=== PATIENT | male | born 1945 | race Caucasian/White ===

== ENCOUNTER → 2016-10-07 | Outpatient (CLI) | payer MEDICARE ==
[~2016-10-07] MED LIST: DOXA4TAB3 PO; LEVO50TA5
== END | disposition home or self-care (01) ==
LOC: CFH 11:04
PROVIDERS: ATTEND Internal Medicine Gastroenterology
DX: K76.0 Fatty (change of) liver, not elsewhere classified (principal)
CPT/HCPCS: 76700

== ENCOUNTER → 2017-02-13 | Outpatient (CLI) | payer MEDICARE ==
[~2017-02-13] MED LIST changes: +OMNIPAQUE 350 MG/ML, 100ML BOTTLE ONE
== END ==
LOC: CFH 11:08
PROVIDERS: ATTEND Family Medicine
DX: C7A.012 Malignant carcinoid tumor of the ileum (principal)
CPT/HCPCS: 71260; 74177; Q9967

== ENCOUNTER → 2017-08-29 | Outpatient (CLI) | payer MEDICARE ==
[~2017-08-29] MED LIST changes: +LEVO125T5 PO; -OMNIPAQUE 350 MG/ML, 100ML BOTTLE ONE
== END | disposition home or self-care (01) ==
LOC: STAR 14:12
PROVIDERS: ATTEND Internal Medicine Gastroenterology
DX: Z01.818 Encounter for other preprocedural examination (principal); I45.10 Unspecified right bundle-branch block
CPT/HCPCS: 93005

== ENCOUNTER 2017-09-04 07:18 | Day surgery (SDC) | payer MEDICARE ==
[~2017-09-04] VITALS: Ht 176.5 cm; Wt 74.0 kg
[2017-09-04] MEDS ORDERED: LACTATED RINGERS 1,000 ML IV SCH (07:59)
[2017-09-04 08:01] VITALS: BP 110/73
[2017-09-04] MEDS ORDERED: FENTANYL PF 100 MCG/2ML ONE (08:55)
[2017-09-04] MEDS ORDERED: ROCURONIUM 10 MG/ML,10ML ONE (09:21)
[2017-09-04] MEDS ORDERED: ONDANSETRON 2MG/ML, 2ML ONE (09:21)
[2017-09-04] MEDS ORDERED: LIDOCAINE PF 2%, 5ML ONE (09:21)
[2017-09-04] MEDS ORDERED: SUCCINYLCHOLINE 20 MG/ML, 10ML ONE (09:21)
[2017-09-04] MEDS ORDERED: EPHEDRINE 50 MG/ML, 1ML ONE (09:21)
[2017-09-04] MEDS ORDERED: DEXAMETHASONE 4 MG/ML, 1ML ONE (09:21)
[2017-09-04] MEDS ORDERED: PROPOFOL 10 MG/ML, 20ML ONE (09:21)
[2017-09-04] MEDS ORDERED: ACETAMINOPHEN 325 MG TABLET PO PRN (10:00)
[2017-09-04] MEDS ORDERED: PROMETHAZINE 25 MG/ML, 1ML IV PRN (10:00)
[2017-09-04] MEDS ORDERED: OXYcodone 5 MG/5 ML ORAL.SOL UDC PO PRN (10:00)
[2017-09-04] MEDS ORDERED: FENTANYL PF 100 MCG/2ML IV PRN (10:00)
[2017-09-04] MEDS ORDERED: HYDROcodone/APAP 7.5-325MG/15ML UDC PO PRN (10:00)
[2017-09-04] MEDS ORDERED: ONDANSETRON ODT 8 MG PO PRN (10:00)
== END 2017-09-04 11:30 ==
LOC: OUT 07:18
PROVIDERS: ATTEND Internal Medicine Gastroenterology
DX: K29.60 Other gastritis without bleeding (principal); K82.8 Other specified diseases of gallbladder; K31.89 Other diseases of stomach and duodenum; Z88.0 Allergy status to penicillin; E03.9 Hypothyroidism, unspecified
CPT/HCPCS: 43239; 43242; 88172; 88173; 88177; 88305; J0330; J1100; J2405; J2704; J3010; J7120

== ENCOUNTER → 2017-11-27 | Outpatient (CLI) | payer MEDICARE | END | disposition home or self-care (01) | LOC: CFH 09:46 | PROVIDERS: ATTEND Internal Medicine Gastroenterology | DX: C7B.01 Secondary carcinoid tumors of distant lymph nodes (principal); R63.4 Abnormal weight loss; R10.11 Right upper quadrant pain; K57.30 Diverticulosis of large intestine without perforation or abscess without bleeding; Z87.891 Personal history of nicotine dependence | CPT/HCPCS: 74250 ==

== ENCOUNTER → 2018-02-20 | Outpatient (CLI) | payer MEDICARE ==
[~2018-02-20] MED LIST changes: +GADOBUTROL 7.5 MMOL/7.5 ML VIAL ONE
== END | disposition home or self-care (01) ==
LOC: CFH 14:24
PROVIDERS: ATTEND Internal Medicine Hematology & Oncology
DX: C7A.012 Malignant carcinoid tumor of the ileum (principal); N13.30 Unspecified hydronephrosis
CPT/HCPCS: 74183; A9585

== ENCOUNTER → 2018-04-06 | Outpatient (CLI) | payer MEDICARE ==
[~2018-04-06] MED LIST changes: -GADOBUTROL 7.5 MMOL/7.5 ML VIAL ONE
== END | disposition home or self-care (01) ==
LOC: EDSTATUS 09:00 → RAD 09:37
PROVIDERS: ATTEND Internal Medicine Hematology & Oncology
DX: N13.39 Other hydronephrosis (principal); C7A.012 Malignant carcinoid tumor of the ileum; K76.89 Other specified diseases of liver; I81 Portal vein thrombosis
CPT/HCPCS: 76700

== ENCOUNTER 2018-05-04 07:20 | Day surgery (SDC) | payer MEDICARE ==
[2018-05-04] MEDS ORDERED: SODIUM CHLORIDE 0.9% 1,000 ML IV SCH (07:42)
[2018-05-04 07:58] VITALS: BP 106/65
[2018-05-04 08:28] LABS: INTERNATIONAL NORMALIZED RATIO 1.19 (0.93-1.1); PROTHROMBIN TIME 12.4 Seconds (9.6-11.5)
[2018-05-04] MEDS ORDERED: FLUMAZENIL 0.1 MG/1 ML, 5ML ONE (08:51)
[2018-05-04] MEDS ORDERED: MIDAZOLAM 1 MG/ML, 5ML ONE ×2 (08:51)
[2018-05-04] MEDS ORDERED: FENTANYL PF 100 MCG/2ML ONE (08:51)
[2018-05-04] MEDS ORDERED: NALOXONE 1 MG/ML, 2ML ONE (08:52)
[2018-05-04] MEDS ORDERED: LIDOCAINE-MPF 1%, 5ML ONE (09:03)
== END 2018-05-04 10:45 | disposition home or self-care (01) ==
LOC: OUT 07:20
PROVIDERS: ATTEND Internal Medicine Hematology & Oncology
DX: C7A.012 Malignant carcinoid tumor of the ileum (principal); Z88.0 Allergy status to penicillin; Z88.8 Allergy status to other drugs, medicaments and biological substances; Z98.890 Other specified postprocedural states; Z87.891 Personal history of nicotine dependence
CPT/HCPCS: 36415; 47000; 77012; 85610; 88307; 88313; 88341; 88342; 88360; 99156; 99157; J2250; J3010; J2310

== ENCOUNTER 2018-05-20 13:09 | Inpatient (IN) | payer MEDICARE ==
[~2018-05-20] VITALS: Ht 175.3 cm; Wt 76.4 kg
--- NOTE | 2018-05-20 13:41 | NUR ---
PT SENT FROM PCP- DR PFEIFFER - FOR "LIVER FAILURE AND LIVER STENT PLACEMENT", +JAUNDICE, HX NEUROENDOCRINE CA- DR ZULUAGA, DENIES PAIN OR CHEMO. PT PLACED ON MONITOR, VSS ON RA. AT BEDSIDE. IV PLACED FOR CT
[2018-05-20 13:49] LABS: INTERNATIONAL NORMALIZED RATIO 1.25 (0.93-1.1)
[2018-05-20 13:52] LABS: ALBUMIN 2.8 g/dL (3.4-5.0); ANION GAP 7 mmol/L (5-15); CALCIUM 9.1 mg/dL (8.5-10.1); CHLORIDE 106 mmol/L (98-107)
[2018-05-20 13:55] LABS: ALANINE AMINOTRANSFERASE 90 U/L (12-78); ALKALINE PHOSPHATASE 653 U/L (45-117)
[2018-05-20 14:00] LABS: CREATININE 1.93 mg/dL (0.7-1.3); TOTAL PROTEIN 6.3 g/dL (6.4-8.2)
[2018-05-20] MEDS ORDERED: SODIUM CHLORIDE FLUSH 10ML SYR IVF ONE (14:00)
[2018-05-20 14:01] LABS: BILIRUBIN,TOTAL 20.4 mg/dL (0.2-1.0)
[2018-05-20 14:11] LABS: MEAN CORPUSCULAR HEMOGLOBIN 33.5 pg (27.5-34.5); MEAN CORPUSCULAR HGB CONC 34.4 g/dL (33.2-36.2); MEAN CORPUSCULAR VOLUME 97.5 fL (81-97); MEAN PLATELET VOLUME 10.2 fL (7.4-10.4); PLATELET COUNT 240 x10^3/uL (130-400); RED BLOOD COUNT 3.66 x10^6/uL (4.38-5.82)
--- NOTE | 2018-05-20 14:42 | NUR ---
PT IN BED, NAD, NO NEEDS AT THIS TIME, AWAITING CT SCAN
[2018-05-20 15:06] LABS: MD YES
[2018-05-20 15:08] LABS: <RBC MORPHOLOGY> NORMAL; BAND#(MANUAL) 0.14 x10^3/uL; BANDS%(MANUAL) 2 % (0-7); LYMPH#(MANUAL) 1.02 x10^3/uL (1-3.4); LYMPHS% (MANUAL) 15 % (22-44); MONOS#(MANUAL) 0.27 x10^3/uL (0.3-2.7); MONOS% (MANUAL) 4 % (2-9); SEG#(MANUAL) 5.37 x10^3/uL (1.8-6.8); SEGS% (MANUAL) 79 % (42-75)
[2018-05-20 15:09] LABS: <PLATELET ESTIMATE> ADEQUATE; LARGE PLATELETS 1+
--- NOTE | 2018-05-20 15:35 | NUR ---
AND HOSPITALIST AT BEDSIDE. UA SENT. PT RESTING IN [facility] WITH FRIEND AT BEDSIDE. JORGE, VALERIANO. WCTM
[2018-05-20 15:39] LABS: BILIRUBIN,INDIRECT 3.9 mg/dL (0.0-2.0)
[2018-05-20 15:41] LABS: BILIRUBIN, DIRECT 16.5 mg/dL (0.1-0.2)
[2018-05-20] MEDS ORDERED: hydrALAzine 20 MG/ML, 1ML IVPush PRN (16:00)
[2018-05-20] MEDS ORDERED: ONDANSETRON 2MG/ML, 2ML IVPush PRN (16:00)
[2018-05-20 16:30] LABS: MICROSCOPIC INDICATED
[2018-05-20 16:37] LABS: CULTURE INDICATED? YES
[2018-05-20 17:03] VITALS: BP 113/70
[2018-05-20] MEDS: SODIUM CHLORIDE 0.9% 1,000 ML IV SCH (17:55)
[2018-05-20 19:20] VITALS: BP 156/73
[2018-05-20 19:21] VITALS: BP 143/75
[2018-05-20] MEDS: METRONIDAZOLE PMX 500MG/100ML 100 ML IV SCH (20:11)
[2018-05-20] MEDS: CEFTRIAXONE PMX 2GM/50ML 50 ML IV SCH (21:58)
[2018-05-21 02:40] VITALS: BP 124/69
[2018-05-21] MEDS: METRONIDAZOLE PMX 500MG/100ML 100 ML IV SCH ×3 (05:00→20:18)
[2018-05-21 05:13] LABS: ALANINE AMINOTRANSFERASE 74 U/L (12-78); ALBUMIN 2.1 g/dL (3.4-5.0); ANION GAP 6 mmol/L (5-15); CALCIUM 8.5 mg/dL (8.5-10.1); CHLORIDE 111 mmol/L (98-107); CREATININE 1.53 mg/dL (0.7-1.3)
[2018-05-21 05:15] LABS: ALKALINE PHOSPHATASE 547 U/L (45-117); MEAN CORPUSCULAR HEMOGLOBIN 32.8 pg (27.5-34.5); MEAN CORPUSCULAR HGB CONC 33.9 g/dL (33.2-36.2); MEAN CORPUSCULAR VOLUME 96.9 fL (81-97); MEAN PLATELET VOLUME 9.8 fL (7.4-10.4); PLATELET COUNT 205 x10^3/uL (130-400); RED BLOOD COUNT 3.17 x10^6/uL (4.38-5.82); RED CELL DISTRIBUTION WIDTH 18.8 % (9.4-14.8); TOTAL PROTEIN 5.2 g/dL (6.4-8.2)
[2018-05-21 05:17] LABS: BILIRUBIN,TOTAL 15.6 mg/dL (0.2-1.0)
[2018-05-21 05:46] LABS: MD YES
[2018-05-21 05:48] LABS: <PLATELET ESTIMATE> ADEQUATE; <PLT MORPHOLOGY> NORMAL PLT MORPH; <RBC MORPHOLOGY> NORMAL; BAND#(MANUAL) 0.06 x10^3/uL; BANDS%(MANUAL) 1 % (0-7); EOS#(MANUAL) 0.06 x10^3/uL (0.0-0.4); EOS% (MANUAL) 1 % (1-7); LYMPH#(MANUAL) 1.02 x10^3/uL (1-3.4); LYMPHS% (MANUAL) 17 % (22-44); MONOS#(MANUAL) 0.48 x10^3/uL (0.3-2.7); MONOS% (MANUAL) 8 % (2-9); SEG#(MANUAL) 4.38 x10^3/uL (1.8-6.8); SEGS% (MANUAL) 73 % (42-75)
[2018-05-21 07:30] VITALS: BP 107/65
[2018-05-21] MEDS: PHYTONADIONE 10 MG/ML, 1ML SQ SCH (09:12)
[2018-05-21] MEDS: SODIUM CHLORIDE 0.9% 1,000 ML IV SCH ×2 (09:12→22:55)
[2018-05-21 13:16] VITALS: BP 125/70
[2018-05-21 19:03] VITALS: BP 133/74
[2018-05-21] MEDS: CEFTRIAXONE PMX 2GM/50ML 50 ML IV SCH (22:55)
[2018-05-22 02:20] VITALS: BP 113/70
[2018-05-22] MEDS: SODIUM CHLORIDE 0.9% 1,000 ML IV SCH ×2 (02:20→21:08)
[2018-05-22 04:47] LABS: MEAN CORPUSCULAR HGB CONC 33.9 g/dL (33.2-36.2); MEAN CORPUSCULAR VOLUME 97.4 fL (81-97); MEAN PLATELET VOLUME 9.8 fL (7.4-10.4); PLATELET COUNT 213 x10^3/uL (130-400); RED BLOOD COUNT 3.18 x10^6/uL (4.38-5.82); RED CELL DISTRIBUTION WIDTH 18.6 % (9.4-14.8)
[2018-05-22 05:01] LABS: ALBUMIN 2.1 g/dL (3.4-5.0); ANION GAP 7 mmol/L (5-15); CALCIUM 8.2 mg/dL (8.5-10.1); CHLORIDE 113 mmol/L (98-107)
[2018-05-22 05:04] LABS: ALANINE AMINOTRANSFERASE 69 U/L (12-78); ALKALINE PHOSPHATASE 517 U/L (45-117); BILIRUBIN,TOTAL 14.9 mg/dL (0.2-1.0); CREATININE 1.47 mg/dL (0.7-1.3)
[2018-05-22 05:39] LABS: MD YES
[2018-05-22 05:41] LABS: LYMPH#(MANUAL) 1.16 x10^3/uL (1-3.4); LYMPHS% (MANUAL) 20 % (22-44); MONOS#(MANUAL) 0.29 x10^3/uL (0.3-2.7); MONOS% (MANUAL) 5 % (2-9)
[2018-05-22 05:42] LABS: ANISOCYTOSIS 1+; EOS#(MANUAL) 0.12 x10^3/uL (0.0-0.4); EOS% (MANUAL) 2 % (1-7); SEG#(MANUAL) 4.23 x10^3/uL (1.8-6.8); SEGS% (MANUAL) 73 % (42-75); TARGET CELLS 1+
[2018-05-22 05:43] LABS: <PLATELET ESTIMATE> ADEQUATE; <PLT MORPHOLOGY> NORMAL PLT MORPH
[2018-05-22] MEDS: METRONIDAZOLE PMX 500MG/100ML 100 ML IV SCH ×3 (05:55→21:07)
[2018-05-22 07:43] VITALS: BP 114/70
[2018-05-22] MEDS: PHYTONADIONE 10 MG/ML, 1ML SQ SCH (10:02)
[2018-05-22 12:23] VITALS: BP 112/69
[2018-05-22] MEDS ORDERED: FENTANYL PF 100 MCG/2ML ONE ×4 (13:23→14:47)
[2018-05-22] MEDS ORDERED: ROCURONIUM 10MG/ML,5ML ONE (13:33)
[2018-05-22] MEDS ORDERED: PROPOFOL 10 MG/ML, 20ML ONE (13:33)
[2018-05-22] MEDS ORDERED: SUCCINYLCHOLINE 20 MG/ML, 10ML ONE (13:33)
[2018-05-22] MEDS ORDERED: ONDANSETRON 2MG/ML, 2ML IV PRN (14:00)
[2018-05-22] MEDS ORDERED: ONDANSETRON ODT 8 MG PO PRN (14:00)
[2018-05-22] MEDS ORDERED: HYDROmorphone 2 MG/ML, 1ML IVPush PRN (14:00)
[2018-05-22] MEDS ORDERED: OXYcodone 5 MG/5 ML ORAL.SOL UDC PO PRN (14:00)
[2018-05-22] MEDS ORDERED: FENTANYL PF 100 MCG/2ML IV PRN (14:00)
[2018-05-22] MEDS ORDERED: FENTANYL PF 250 MCG/5ML ONE (14:49)
[2018-05-22 15:22] VITALS: BP 110/69
[2018-05-22 19:42] VITALS: BP 120/69
[2018-05-22] MEDS: CEFTRIAXONE PMX 2GM/50ML 50 ML IV SCH (22:38)
[2018-05-23 01:05] VITALS: BP 116/71
[2018-05-23] MEDS: METRONIDAZOLE PMX 500MG/100ML 100 ML IV SCH ×3 (05:15→21:18)
[2018-05-23 07:35] VITALS: BP 115/63
[2018-05-23 08:28] LABS: MEAN CORPUSCULAR HGB CONC 33.6 g/dL (33.2-36.2); MEAN CORPUSCULAR VOLUME 98.2 fL (81-97); MEAN PLATELET VOLUME 9.6 fL (7.4-10.4); PLATELET COUNT 229 x10^3/uL (130-400); RED BLOOD COUNT 3.45 x10^6/uL (4.38-5.82); RED CELL DISTRIBUTION WIDTH 18.6 % (9.4-14.8)
[2018-05-23 08:35] LABS: ALANINE AMINOTRANSFERASE 70 U/L (12-78); ALBUMIN 2.4 g/dL (3.4-5.0); ANION GAP 9 mmol/L (5-15); CALCIUM 8.9 mg/dL (8.5-10.1); CHLORIDE 112 mmol/L (98-107); CREATININE 1.87 mg/dL (0.7-1.3)
[2018-05-23 08:38] LABS: ALKALINE PHOSPHATASE 541 U/L (45-117); TOTAL PROTEIN 5.6 g/dL (6.4-8.2)
[2018-05-23 08:48] LABS: BILIRUBIN,TOTAL 16.6 mg/dL (0.2-1.0)
[2018-05-23] MEDS: PHYTONADIONE 10 MG/ML, 1ML SQ SCH (08:50)
[2018-05-23 09:35] LABS: MD YES
[2018-05-23 09:40] LABS: BAND#(MANUAL) 0.08 x10^3/uL; BANDS%(MANUAL) 1 % (0-7); EOS#(MANUAL) 0.08 x10^3/uL (0.0-0.4); EOS% (MANUAL) 1 % (1-7); LYMPH#(MANUAL) 1.15 x10^3/uL (1-3.4); LYMPHS% (MANUAL) 14 % (22-44); METAMYELOCYTES# (MANUAL) 0.08 x10^3/uL (0-0); METAMYELOCYTES% (MANUAL) 1 % (0-1); MONOS#(MANUAL) 0.41 x10^3/uL (0.3-2.7); MONOS% (MANUAL) 5 % (2-9); MYELOCYTES# (MANUAL) 0.08 x10^3/uL (0-0); MYELOCYTES% (MANUAL) 1 % (0-0); REACTIVE LYMPHS # (MANUAL) 0.08 x10^3/uL (0-0); REACTIVE LYMPHS % (MANUAL) 1 % (0-0); SEG#(MANUAL) 6.23 x10^3/uL (1.8-6.8); SEGS% (MANUAL) 76 % (42-75)
[2018-05-23 09:45] LABS: ANISOCYTOSIS 1+
[2018-05-23 09:46] LABS: <PLATELET ESTIMATE> ADEQUATE; <PLT MORPHOLOGY> NORMAL PLT MORPH
[2018-05-23] MEDS: SODIUM CHLORIDE 0.9% 1,000 ML IV SCH (12:32)
[2018-05-23 13:35] VITALS: BP 118/70
[2018-05-23 18:49] VITALS: BP 121/70
[2018-05-23] MEDS: CEFTRIAXONE PMX 2GM/50ML 50 ML IV SCH (22:41)
[2018-05-24 00:51] VITALS: BP 117/68
[2018-05-24 07:30] VITALS: BP 125/73
[2018-05-24] MEDS: METRONIDAZOLE PMX 500MG/100ML 100 ML IV SCH ×3 (08:05→23:13)
[2018-05-24] MEDS: SODIUM CHLORIDE 0.9% 1,000 ML IV SCH (08:05)
[2018-05-24 08:42] LABS: ALBUMIN 2.2 g/dL (3.4-5.0); ANION GAP 5 mmol/L (5-15); CALCIUM 8.5 mg/dL (8.5-10.1); CHLORIDE 115 mmol/L (98-107)
[2018-05-24 08:45] LABS: ALANINE AMINOTRANSFERASE 61 U/L (12-78); ALKALINE PHOSPHATASE 513 U/L (45-117); BILIRUBIN,TOTAL 14.8 mg/dL (0.2-1.0); CREATININE 1.55 mg/dL (0.7-1.3); TOTAL PROTEIN 5.2 g/dL (6.4-8.2)
[2018-05-24 14:00] VITALS: BP 120/72
[2018-05-24 20:36] VITALS: BP 127/77
[2018-05-24] MEDS: CEFTRIAXONE PMX 2GM/50ML 50 ML IV SCH (22:17)
[2018-05-25 00:04] VITALS: BP 124/75
[2018-05-25] MEDS: SODIUM CHLORIDE 0.9% 1,000 ML IV SCH ×2 (01:28→12:33)
[2018-05-25 05:01] LABS: CHLORIDE 116 mmol/L (98-107); MEAN CORPUSCULAR HEMOGLOBIN 33.4 pg (27.5-34.5); MEAN CORPUSCULAR HGB CONC 33.9 g/dL (33.2-36.2); MEAN CORPUSCULAR VOLUME 98.5 fL (81-97); PLATELET COUNT 201 x10^3/uL (130-400); RED BLOOD COUNT 3.16 x10^6/uL (4.38-5.82); RED CELL DISTRIBUTION WIDTH 18.8 % (9.4-14.8)
[2018-05-25 05:07] LABS: ALANINE AMINOTRANSFERASE 54 U/L (12-78); ALBUMIN 2.1 g/dL (3.4-5.0); ALKALINE PHOSPHATASE 486 U/L (45-117); ANION GAP 6 mmol/L (5-15); BILIRUBIN,TOTAL 13.9 mg/dL (0.2-1.0); CALCIUM 8.3 mg/dL (8.5-10.1); CREATININE 1.45 mg/dL (0.7-1.3); TOTAL PROTEIN 4.8 g/dL (6.4-8.2)
[2018-05-25 05:37] LABS: MD YES
[2018-05-25 05:39] LABS: ANISOCYTOSIS 1+; EOS#(MANUAL) 0.12 x10^3/uL (0.0-0.4); EOS% (MANUAL) 2 % (1-7); LYMPH#(MANUAL) 0.73 x10^3/uL (1-3.4); LYMPHS% (MANUAL) 12 % (22-44); MONOS#(MANUAL) 0.18 x10^3/uL (0.3-2.7); MONOS% (MANUAL) 3 % (2-9); MYELOCYTES# (MANUAL) 0.06 x10^3/uL (0-0); MYELOCYTES% (MANUAL) 1 % (0-0); SEGS% (MANUAL) 82 % (42-75); TARGET CELLS 1+
[2018-05-25 05:40] LABS: <PLATELET ESTIMATE> ADEQUATE; <PLT MORPHOLOGY> NORMAL PLT MORPH; HYPOCHROMIA 1+
[2018-05-25] MEDS: METRONIDAZOLE PMX 500MG/100ML 100 ML IV SCH ×3 (06:27→23:53)
[2018-05-25 07:30] VITALS: BP 123/72
[2018-05-25] MEDS ORDERED: LIDOCAINE-MPF 1%, 5ML ONE ×2 (10:22)
[2018-05-25] MEDS ORDERED: LEVOTHYROXINE 125 MCG TABLET PO SCH (11:00)
[2018-05-25] MEDS ORDERED: FLUMAZENIL 0.1 MG/1 ML, 5ML ONE (11:00)
[2018-05-25] MEDS ORDERED: MIDAZOLAM 1 MG/ML, 5ML ONE (11:00)
[2018-05-25] MEDS ORDERED: FENTANYL PF 100 MCG/2ML ONE (11:00)
[2018-05-25] MEDS ORDERED: NALOXONE 1 MG/ML, 2ML ONE (11:00)
[2018-05-25] MEDS ORDERED: ONDANSETRON 2MG/ML, 2ML ONE (11:53)
[2018-05-25] MEDS: morphine SULFATE 10 MG/ML, 1ML IVPush PRN ×2 (12:33→15:26)
[2018-05-25 12:39] VITALS: BP 135/76
[2018-05-25 21:05] VITALS: BP 124/75
[2018-05-25] MEDS: CEFTRIAXONE PMX 2GM/50ML 50 ML IV SCH (22:45)
[2018-05-26 01:33] VITALS: BP 128/72
[2018-05-26] MEDS: SODIUM CHLORIDE 0.9% 1,000 ML IV SCH ×2 (03:40→18:29)
[2018-05-26 05:39] LABS: ALBUMIN 2.2 g/dL (3.4-5.0); ANION GAP 7 mmol/L (5-15); CALCIUM 8.5 mg/dL (8.5-10.1); CHLORIDE 116 mmol/L (98-107); CREATININE 1.64 mg/dL (0.7-1.3)
[2018-05-26 06:00] LABS: ALANINE AMINOTRANSFERASE 52 U/L (12-78); ALKALINE PHOSPHATASE 431 U/L (45-117)
[2018-05-26] MEDS: LEVOTHYROXINE 125 MCG TABLET PO SCH (06:00)
[2018-05-26] MEDS: METRONIDAZOLE PMX 500MG/100ML 100 ML IV SCH ×2 (06:39→16:05)
[2018-05-26 07:27] VITALS: BP 136/72
[2018-05-26] MEDS: DOXAZOSIN MESYLATE 8 MG PO SCH (09:00)
[2018-05-26 13:49] VITALS: BP 131/77
[2018-05-26 19:32] VITALS: BP 135/77
[2018-05-26] MEDS: CEFTRIAXONE PMX 2GM/50ML 50 ML IV SCH ×2 (22:18→22:19)
[2018-05-27 00:09] VITALS: BP 138/72
[2018-05-27] MEDS: METRONIDAZOLE PMX 500MG/100ML 100 ML IV SCH ×3 (00:39→18:51)
[2018-05-27] MEDS: morphine SULFATE 10 MG/ML, 1ML IVPush PRN ×4 (00:47→22:48)
[2018-05-27 05:13] LABS: ALANINE AMINOTRANSFERASE 43 U/L (12-78); ALBUMIN 2.1 g/dL (3.4-5.0); ANION GAP 6 mmol/L (5-15); CALCIUM 8.2 mg/dL (8.5-10.1); CHLORIDE 115 mmol/L (98-107)
[2018-05-27 05:16] LABS: ALKALINE PHOSPHATASE 370 U/L (45-117); BILIRUBIN,TOTAL 10.3 mg/dL (0.2-1.0); TOTAL PROTEIN 4.8 g/dL (6.4-8.2)
[2018-05-27] MEDS: LEVOTHYROXINE 125 MCG TABLET PO SCH (06:29)
[2018-05-27] MEDS: SODIUM CHLORIDE 0.9% 1,000 ML IV SCH (06:55)
[2018-05-27 07:04] VITALS: BP 119/71
[2018-05-27] MEDS: DOXAZOSIN MESYLATE 8 MG PO SCH (07:58)
[2018-05-27] MEDS ORDERED: LIDOCAINE-MPF 1%, 5ML ONE ×2 (11:22)
[2018-05-27] MEDS ORDERED: MIDAZOLAM 1 MG/ML, 5ML ONE (11:40)
[2018-05-27] MEDS ORDERED: FLUMAZENIL 0.1 MG/1 ML, 5ML ONE (11:40)
[2018-05-27] MEDS ORDERED: FENTANYL PF 100 MCG/2ML ONE (11:40)
[2018-05-27] MEDS ORDERED: NALOXONE 1 MG/ML, 2ML ONE (11:41)
[2018-05-27 14:06] VITALS: BP 167/95
[2018-05-27 14:15] VITALS: BP 155/78
[2018-05-27 18:51] VITALS: BP 148/71
[2018-05-27] MEDS ORDERED: CEFTRIAXONE PMX 2GM/50ML 50 ML IV SCH (22:00)
[2018-05-27] MEDS: CEFTRIAXONE PMX 2GM/50ML 50 ML IV SCH (22:55)
[2018-05-28] MEDS: SODIUM CHLORIDE 0.9% 1,000 ML IV SCH ×2 (00:14→15:06)
[2018-05-28 00:45] VITALS: BP 148/75
[2018-05-28] MEDS: METRONIDAZOLE PMX 500MG/100ML 100 ML IV SCH ×3 (03:08→20:43)
[2018-05-28] MEDS: morphine SULFATE 10 MG/ML, 1ML IVPush PRN ×2 (03:08→15:04)
[2018-05-28 04:38] LABS: CALCIUM 8.5 mg/dL (8.5-10.1); CHLORIDE 113 mmol/L (98-107)
[2018-05-28 04:44] LABS: ALANINE AMINOTRANSFERASE 43 U/L (12-78); ALBUMIN 2.1 g/dL (3.4-5.0); ALKALINE PHOSPHATASE 385 U/L (45-117); ANION GAP 7 mmol/L (5-15); BILIRUBIN,TOTAL 10.9 mg/dL (0.2-1.0); CREATININE 1.59 mg/dL (0.7-1.3); TOTAL PROTEIN 5.1 g/dL (6.4-8.2)
[2018-05-28] MEDS: LEVOTHYROXINE 125 MCG TABLET PO SCH (06:38)
[2018-05-28 06:53] VITALS: BP 132/72
[2018-05-28] MEDS: DOXAZOSIN MESYLATE 8 MG PO SCH (09:00)
[2018-05-28 11:39] VITALS: BP 150/80
[2018-05-28 19:19] VITALS: BP 132/75
[2018-05-29] MEDS: CEFTRIAXONE PMX 2GM/50ML 50 ML IV SCH ×2 (00:01→23:51)
[2018-05-29 00:56] VITALS: BP 130/58
[2018-05-29] MEDS: METRONIDAZOLE PMX 500MG/100ML 100 ML IV SCH ×3 (04:16→22:12)
[2018-05-29] MEDS: morphine SULFATE 10 MG/ML, 1ML IVPush PRN (04:16)
[2018-05-29 05:14] LABS: BASOPHILS # (AUTO) 0.01 x10^3/uL (0-0.1); BASOPHILS % (AUTO) 0 % (0-1); EOSINOPHILS # (AUTO) 0.04 x10^3/uL (0-0.4); EOSINOPHILS % (AUTO) 1 % (1-7); LYMPHOCYTES # (AUTO) 1.15 x10^3/uL (1-3.4); LYMPHOCYTES % (AUTO) 21 % (22-44); MD NO; MEAN CORPUSCULAR HEMOGLOBIN 32.8 pg (27.5-34.5); MEAN CORPUSCULAR HGB CONC 32.9 g/dL (33.2-36.2); MEAN CORPUSCULAR VOLUME 99.8 fL (81-97); MEAN PLATELET VOLUME 9.2 fL (7.4-10.4); MONOCYTES # (AUTO) 0.48 x10^3/uL (0.2-0.8); MONOCYTES % (AUTO) 9 % (2-9); NEUTROPHILS # (AUTO) 3.79 x10^3/uL (1.8-6.8); NEUTROPHILS % (AUTO) 69 % (42-75); PLATELET COUNT 171 x10^3/uL (130-400); RED BLOOD COUNT 3.23 x10^6/uL (4.38-5.82); RED CELL DISTRIBUTION WIDTH 17.7 % (9.4-14.8)
[2018-05-29 05:23] LABS: ALBUMIN 2.1 g/dL (3.4-5.0); ANION GAP 6 mmol/L (5-15); CALCIUM 8.1 mg/dL (8.5-10.1); CHLORIDE 115 mmol/L (98-107)
[2018-05-29 05:27] LABS: ALANINE AMINOTRANSFERASE 38 U/L (12-78); ALKALINE PHOSPHATASE 321 U/L (45-117); BILIRUBIN,TOTAL 9.1 mg/dL (0.2-1.0); CREATININE 1.45 mg/dL (0.7-1.3); TOTAL PROTEIN 4.7 g/dL (6.4-8.2)
[2018-05-29] MEDS: SODIUM CHLORIDE 0.9% 1,000 ML IV SCH ×2 (05:43→16:40)
[2018-05-29] MEDS: LEVOTHYROXINE 125 MCG TABLET PO SCH (06:00)
[2018-05-29 07:33] VITALS: BP 119/70
[2018-05-29] MEDS: DOXAZOSIN MESYLATE 8 MG PO SCH (09:00)
[2018-05-29 13:36] VITALS: BP 136/77
[2018-05-29 19:02] VITALS: BP 139/81
[2018-05-30 01:47] VITALS: BP 138/75
[2018-05-30] MEDS: METRONIDAZOLE PMX 500MG/100ML 100 ML IV SCH ×3 (05:43→22:16)
[2018-05-30] MEDS: SODIUM CHLORIDE 0.9% 1,000 ML IV SCH ×2 (05:44→20:07)
[2018-05-30] MEDS: LEVOTHYROXINE 125 MCG TABLET PO SCH (05:52)
[2018-05-30 07:56] VITALS: BP 126/75
[2018-05-30] MEDS: DOXAZOSIN MESYLATE 8 MG PO SCH (08:56)
[2018-05-30 13:55] VITALS: BP 122/73
[2018-05-30 13:56] LABS: ALANINE AMINOTRANSFERASE 38 U/L (12-78); ALBUMIN 2.1 g/dL (3.4-5.0); ANION GAP 7 mmol/L (5-15); CHLORIDE 115 mmol/L (98-107); CREATININE 1.39 mg/dL (0.7-1.3)
[2018-05-30 13:58] LABS: ALKALINE PHOSPHATASE 319 U/L (45-117); BILIRUBIN,TOTAL 8.7 mg/dL (0.2-1.0); TOTAL PROTEIN 4.8 g/dL (6.4-8.2)
[2018-05-30] MEDS ORDERED: SIMETHICONE 80 MG CHEW TAB PO ONE (15:00)
[2018-05-30 20:05] VITALS: BP 147/81
[2018-05-30] MEDS: SIMETHICONE 125 MG CHEW TAB PO SCH (21:00)
[2018-05-31] MEDS: CEFTRIAXONE PMX 2GM/50ML 50 ML IV SCH (00:15)
[2018-05-31] MEDS: morphine SULFATE 10 MG/ML, 1ML IVPush PRN (00:19)
[2018-05-31 02:22] VITALS: BP 128/68
[2018-05-31] MEDS: METRONIDAZOLE PMX 500MG/100ML 100 ML IV SCH (06:01)
[2018-05-31] MEDS: LEVOTHYROXINE 125 MCG TABLET PO SCH (06:01)
[2018-05-31 07:43] VITALS: BP 138/77
[2018-05-31] MEDS: SIMETHICONE 125 MG CHEW TAB PO SCH ×2 (08:25→12:15)
[2018-05-31 08:50] LABS: MEAN CORPUSCULAR HEMOGLOBIN 33.1 pg (27.5-34.5); MEAN CORPUSCULAR HGB CONC 33.3 g/dL (33.2-36.2); MEAN CORPUSCULAR VOLUME 99.3 fL (81-97); MEAN PLATELET VOLUME 9.3 fL (7.4-10.4); PLATELET COUNT 173 x10^3/uL (130-400); RED BLOOD COUNT 3.71 x10^6/uL (4.38-5.82); RED CELL DISTRIBUTION WIDTH 17.3 % (9.4-14.8)
[2018-05-31 08:53] LABS: ALANINE AMINOTRANSFERASE 36 U/L (12-78); ALBUMIN 2.3 g/dL (3.4-5.0); ANION GAP 10 mmol/L (5-15); CALCIUM 8.3 mg/dL (8.5-10.1); CHLORIDE 112 mmol/L (98-107); CREATININE 1.51 mg/dL (0.7-1.3)
[2018-05-31 08:55] LABS: ALKALINE PHOSPHATASE 352 U/L (45-117); BILIRUBIN,TOTAL 9.2 mg/dL (0.2-1.0); TOTAL PROTEIN 5.1 g/dL (6.4-8.2)
[2018-05-31] MEDS: DOXAZOSIN MESYLATE 8 MG PO SCH (09:20)
[2018-05-31 09:49] LABS: BASOPHILS # (AUTO) 0.03 x10^3/uL (0-0.1); BASOPHILS % (AUTO) 0 % (0-1); EOSINOPHILS # (AUTO) 0.08 x10^3/uL (0-0.4); EOSINOPHILS % (AUTO) 1 % (1-7); LYMPHOCYTES # (AUTO) 2.22 x10^3/uL (1-3.4); LYMPHOCYTES % (AUTO) 31 % (22-44); MD SCAN; MONOCYTES # (AUTO) 0.52 x10^3/uL (0.2-0.8); MONOCYTES % (AUTO) 7 % (2-9); NEUTROPHILS # (AUTO) 4.39 x10^3/uL (1.8-6.8); NEUTROPHILS % (AUTO) 61 % (42-75)
[2018-05-31] MEDS: SODIUM CHLORIDE 0.9% 1,000 ML IV SCH (11:30)
[2018-05-31] MEDS ORDERED: Simethicone PO (12:39)
== END 2018-05-31 13:26 | disposition home or self-care (01) | DRG 444 ==
LOC: ED 16:10 → 3NW 16:15 → ED 18:37
PROVIDERS: ADMIT Internal Medicine; ATTEND Internal Medicine
PROC: 0DJ08ZZ Inspection of Upper Intestinal Tract, Via Natural or Artificial Opening Endoscopic (ICD-10-PCS; principal; 2018-05-25)
PROC: BF101ZZ Fluoroscopy of Bile Ducts using Low Osmolar Contrast (ICD-10-PCS; 2018-05-25)
PROC: 0F9630Z Drainage of Left Hepatic Duct with Drainage Device, Percutaneous Approach (ICD-10-PCS; 2018-05-25)
PROC: 0F9530Z Drainage of Right Hepatic Duct with Drainage Device, Percutaneous Approach (ICD-10-PCS; 2018-05-25)
PROC: 0F753DZ Dilation of Right Hepatic Duct with Intraluminal Device, Percutaneous Approach (ICD-10-PCS; 2018-05-27)
PROC: 0FPBX0Z Removal of Drainage Device from Hepatobiliary Duct, External Approach (ICD-10-PCS; 2018-05-27)
DX: K83.1 Obstruction of bile duct (principal); I81 Portal vein thrombosis; E43 Unspecified severe protein-calorie malnutrition; N17.0 Acute kidney failure with tubular necrosis; C7A.8 Other malignant neuroendocrine tumors; N13.30 Unspecified hydronephrosis; C7B.02 Secondary carcinoid tumors of liver; E03.9 Hypothyroidism, unspecified; I10 Essential (primary) hypertension; G89.29 Other chronic pain; K82.8 Other specified diseases of gallbladder; N40.0 Benign prostatic hyperplasia without lower urinary tract symptoms; Z90.49 Acquired absence of other specified parts of digestive tract; Z88.0 Allergy status to penicillin; Z87.891 Personal history of nicotine dependence; Z80.6 Family history of leukemia; Z68.24 Body mass index [BMI] 24.0-24.9, adult
CPT/HCPCS: 36415; 47534; 47538; 76001; 76770; 80053; 81001; 82140; 82247; 82248; 83690; 83735; 84100; 84443; 85025; 85610; 87077; 87086; 87186; 96374; 99156; 99157; 99285; C1894; G0378; J0696; J2250; J2405; J2704; J3010; J3430; C1729; C1751; C1769; C1876; J0330; J2270; J2310; J7030

== ENCOUNTER 2018-06-18 16:39 | Emergency (ER) | payer MEDICARE ==
[~2018-06-18] VITALS: Ht 175.3 cm; Wt 66.0 kg
[~2018-06-18 16:39] MED LIST changes: +Simethicone PO
--- NOTE | 2018-06-18 16:54 | NUR ---
PT PLACED IN GOWN, BP CUFF AND PULSE OX IN PLACE. ERP IN TO SEE PT.
--- NOTE | 2018-06-18 17:01 | NUR ---
PCXR COMPLETED. LAB IN TO DRAW. URINAL AT BS, PT TO PUT MAGNESIUM MILL OPERATOR LIGHT WHEN ABLE TO PROVIDE UA. CALL LIGHT WITHIN REACH.
[2018-06-18 17:21] LABS: MEAN CORPUSCULAR HEMOGLOBIN 33.6 pg (27.5-34.5); MEAN CORPUSCULAR HGB CONC 34.2 g/dL (33.2-36.2); MEAN CORPUSCULAR VOLUME 98.3 fL (81-97); MEAN PLATELET VOLUME 9.8 fL (7.4-10.4); PLATELET COUNT 111 x10^3/uL (130-400); RED BLOOD COUNT 3.76 x10^6/uL (4.38-5.82); RED CELL DISTRIBUTION WIDTH 14.9 % (9.4-14.8)
[2018-06-18 17:32] LABS: ALANINE AMINOTRANSFERASE 47 U/L (12-78); ALBUMIN 2.6 g/dL (3.4-5.0); ANION GAP 12 mmol/L (5-15); CALCIUM 9.2 mg/dL (8.5-10.1); CHLORIDE 107 mmol/L (98-107); CREATININE 2.36 mg/dL (0.7-1.3)
[2018-06-18 17:34] LABS: ALKALINE PHOSPHATASE 536 U/L (45-117); TOTAL PROTEIN 6.3 g/dL (6.4-8.2)
--- NOTE | 2018-06-18 17:43 | NUR ---
PT SLEEPING, NAD. PT WOKE AND ASKED TO ATTEMPT TO GIVE URINE SPECIMEN.
[2018-06-18 17:49] LABS: MD YES
--- NOTE | 2018-06-18 17:55 | NUR ---
URINE COLLECTED/SENT TO LAB.
[2018-06-18 17:56] LABS: BAND#(MANUAL) 0.14 x10^3/uL; BANDS%(MANUAL) 6 % (0-7); LYMPH#(MANUAL) 0.05 x10^3/uL (1-3.4); LYMPHS% (MANUAL) 2 % (22-44); MONOS#(MANUAL) 0.05 x10^3/uL (0.3-2.7); MONOS% (MANUAL) 2 % (2-9); SEG#(MANUAL) 2.07 x10^3/uL (1.8-6.8); SEGS% (MANUAL) 90 % (42-75)
[2018-06-18 17:57] LABS: ANISOCYTOSIS 1+
[2018-06-18 17:58] LABS: HYPOCHROMIA 1+
[2018-06-18 17:59] LABS: <PLATELET ESTIMATE> DECREASED; <PLT MORPHOLOGY> NORMAL PLT MORPH
--- NOTE | 2018-06-18 18:12 | NUR ---
PT INFORMED OF ORDER FOR IV/IVF. PT ASKING TO HOLD ON IV AT THIS TIME. WOULD LIKE TO SPEAK WITH ERP AND DOES NOT WANT TO BE ADMITTED. ERP NOTIFIED. AWAITING UA.
--- NOTE | 2018-06-18 18:24 | NUR ---
CALL TO LAB TO INQUIRE ON URINE SPECIMEN NOT PROCESSING. REQUEST TO PT TO PROVIDE ANOTHER URINE SPECIMEN, PT STATES "NO, I'D LIKE TO GO HOME AND I CAN GO INTO LAB TOMORROW AND PROVIDE ONE". ERP NOTIFIED.
[2018-06-18 18:51] VITALS: BP 111/61
[2018-06-18] MEDS ORDERED: SODIUM CHLORIDE 0.9% 1,000ML IVBOLUS ONE (19:00)
[2018-06-19] MEDS ORDERED: OXYC5TAB3 PO (15:48)
== END 2018-06-18 18:53 | disposition home or self-care (01) ==
LOC: ED 18:27
DX: N18.9 Chronic kidney disease, unspecified (principal); E87.2 Acidosis; E86.0 Dehydration; M54.6 Pain in thoracic spine; Z87.891 Personal history of nicotine dependence; Z85.89 Personal history of malignant neoplasm of other organs and systems
CPT/HCPCS: 36415; 71045; 80053; 82140; 83605; 83690; 84145; 85025; 87040; 87077; 87186; 99284

== ENCOUNTER 2018-06-19 14:21 | Inpatient (IN) | payer MEDICARE ==
[~2018-06-19] VITALS: Ht 175.3 cm; Wt 69.1 kg
[2018-06-19] MEDS ORDERED: SODIUM CHLORIDE FLUSH 10ML SYR IVF ONE (15:00)
[2018-06-19] MEDS ORDERED: CEFTRIAXONE PMX 1GM/50ML 50 ML IVPB ONE (15:00)
[2018-06-19 15:04] LABS: BASOPHILS # (AUTO) 0.02 x10^3/uL (0-0.1); BASOPHILS % (AUTO) 0 % (0-1); EOSINOPHILS # (AUTO) 0.03 x10^3/uL (0-0.4); EOSINOPHILS % (AUTO) 1 % (1-7); LYMPHOCYTES # (AUTO) 1.56 x10^3/uL (1-3.4); LYMPHOCYTES % (AUTO) 33 % (22-44); MEAN CORPUSCULAR HEMOGLOBIN 33.6 pg (27.5-34.5); MEAN CORPUSCULAR HGB CONC 33.7 g/dL (33.2-36.2); MEAN CORPUSCULAR VOLUME 99.7 fL (81-97); MEAN PLATELET VOLUME 9.9 fL (7.4-10.4); MONOCYTES # (AUTO) 0.06 x10^3/uL (0.2-0.8); MONOCYTES % (AUTO) 1 % (2-9); NEUTROPHILS # (AUTO) 3.13 x10^3/uL (1.8-6.8); NEUTROPHILS % (AUTO) 65 % (42-75); PLATELET COUNT 119 x10^3/uL (130-400); RED BLOOD COUNT 3.84 x10^6/uL (4.38-5.82); RED CELL DISTRIBUTION WIDTH 14.9 % (9.4-14.8)
[2018-06-19 15:05] LABS: MD NO
--- NOTE | 2018-06-19 15:05 | NUR ---
REPORT FROM JHONY SULLIVAN PATIENT RESTING COMFORTABLY ON GURNERY W/ FAMILY AT BEDSIDE. VSS ON READING INSTRUCTOR. DENIES COMPLAINT (NO CHILLS AT THIS TIME) TO ADMINISTER ABX ONCE CLARIFICATION PATIENT DOES NOT NEED TO BE RE-CULTURED 1ST
[2018-06-19 15:10] LABS: ALANINE AMINOTRANSFERASE 54 U/L (12-78); ALBUMIN 2.7 g/dL (3.4-5.0); ANION GAP 14 mmol/L (5-15); CALCIUM 9.1 mg/dL (8.5-10.1); CHLORIDE 105 mmol/L (98-107); CREATININE 2.34 mg/dL (0.7-1.3)
--- NOTE | 2018-06-19 15:12 | NUR ---
PT RETURNS TO THE ER TODAY FOR POSITIVE BLOOD CULTURE AFTER VISIT YESTERDAY FOR THE "SHAKES." PT DENIES CP OR SOB BUT DOES HAVE BACK PAIN THAT PT REPORTS TO BE CHRONIC. PT HAS HX OF CARCINOID CA WITH METS. PT HAS NOT UNDERGONE ANY CHEMO OR RADIATION YET. PT HAS LOST 60+ POUNDS OVER THE LAST YEAR. PT ON MONITOR. PT GIVEN ICE CHIPS PER DR. WEISS. REPORT TO SADIE SULLIVAN.
[2018-06-19 15:13] LABS: ALKALINE PHOSPHATASE 577 U/L (45-117); BILIRUBIN,TOTAL 7.9 mg/dL (0.2-1.0); TOTAL PROTEIN 6.3 g/dL (6.4-8.2)
[2018-06-19] MEDS ORDERED: CEFTRIAXONE PMX 1GM/50ML 50 ML ONE (15:36)
--- NOTE | 2018-06-19 15:42 | NUR ---
ROCEPHIN INITIATED AFTER ED PROVIDER REPORTS REPEAT BLOOD CULTURES NOT NECCESSARY
[2018-06-19] MEDS ORDERED: OXYC5TAB3 PO (15:48)
[2018-06-19] MEDS ORDERED: SODIUM CHLORIDE FLUSH 10ML SYR IVF PRN (16:30)
[2018-06-19 16:55] LABS: MICROSCOPIC INDICATED
--- NOTE | 2018-06-19 16:59 | NUR ---
PATIENT CONTINUES TO DENY COMPLAINTS-ALTHOUGH INTERMITTENT GRIMACE NOTED. PATIENT REPORTS HE TAKES OXYCODONE BUT IS DEFERRING ADMINISTRATION NOW. URINE SENT (ABLE TO VOID ROUGHLY 150ML OF HEAVILLY CONCENTRATED URINE) FAMILY AT BEDSIDE UPDATED ON ADMIT ORDERS CALL CHRISTIANSON IN HAND/SIDE RAILS UP
[2018-06-19 17:10] LABS: CULTURE INDICATED? YES
--- NOTE | 2018-06-19 17:12 | NUR ---
HOSPITAL BED/DINNER ORDERED FOR PATIENT
--- NOTE | 2018-06-19 17:50 | NUR ---
DR. GRIER VERBALLY INSTRUCTED CEMETERY COUNSELOR TO INITIATE 2L NS BOLUS LETA. POLINA SULLIVAN MADE AWARE PATIENT BEING TRANSFERRED MOMENTARILLY. PATIENT ON HOSPITAL BED/EATING DINNER VITAL REMAIN STABLE ON MACHINIST MECHANIC NO COMPLAINTS AT THIS TIME CALL CHRISTIANSON IN HAND/SIDE RAILS UP
[2018-06-19] MEDS ORDERED: SODIUM CHLORIDE 0.9% 1,000ML IVBOLUS ONE (18:00)
[2018-06-19] MEDS ORDERED: ACETAMINOPHEN 325 MG TABLET PO PRN (18:00)
[2018-06-19 18:39] VITALS: BP 108/59
[2018-06-19] MEDS: HEPARIN 5,000 UNITS/ML, 1ML SQ SCH (21:32)
[2018-06-19] MEDS: SODIUM CHLORIDE 0.9% 1,000 ML IV SCH (22:06)
[2018-06-20 02:00] VITALS: BP 121/69
[2018-06-20 06:04] LABS: ALANINE AMINOTRANSFERASE 46 U/L (12-78); ALBUMIN 2.1 g/dL (3.4-5.0); ANION GAP 7 mmol/L (5-15); CALCIUM 8.2 mg/dL (8.5-10.1); CHLORIDE 111 mmol/L (98-107)
[2018-06-20] MEDS: SODIUM CHLORIDE 0.9% 1,000 ML IV SCH ×3 (06:09→23:20)
[2018-06-20 06:20] LABS: MEAN CORPUSCULAR HGB CONC 33.8 g/dL (33.2-36.2); MEAN CORPUSCULAR VOLUME 97.6 fL (81-97); RED BLOOD COUNT 3.28 x10^6/uL (4.38-5.82); RED CELL DISTRIBUTION WIDTH 14.8 % (9.4-14.8)
[2018-06-20 06:29] LABS: ALKALINE PHOSPHATASE 477 U/L (45-117); CREATININE 1.66 mg/dL (0.7-1.3)
[2018-06-20 06:43] LABS: BASOPHILS # (AUTO) 0.02 x10^3/uL (0-0.1); BASOPHILS % (AUTO) 0 % (0-1); EOSINOPHILS # (AUTO) 0.05 x10^3/uL (0-0.4); EOSINOPHILS % (AUTO) 1 % (1-7); LYMPHOCYTES # (AUTO) 1.03 x10^3/uL (1-3.4); LYMPHOCYTES % (AUTO) 19 % (22-44); MD SCAN; MEAN PLATELET VOLUME 9.6 fL (7.4-10.4); MONOCYTES # (AUTO) 0.36 x10^3/uL (0.2-0.8); MONOCYTES % (AUTO) 7 % (2-9); NEUTROPHILS # (AUTO) 3.86 x10^3/uL (1.8-6.8); NEUTROPHILS % (AUTO) 73 % (42-75); PLATELET COUNT 90 x10^3/uL (130-400)
[2018-06-20 06:59] VITALS: BP 124/74
[2018-06-20] MEDS ORDERED: LEVOTHYROXINE 125 MCG TABLET PO SCH (09:00)
[2018-06-20] MEDS: HEPARIN 5,000 UNITS/ML, 1ML SQ SCH ×2 (09:13→20:56)
[2018-06-20] MEDS: DOXAZOSIN 2MG TABLET PO SCH (09:19)
[2018-06-20 13:20] VITALS: BP 126/78
[2018-06-20] MEDS: CEFTRIAXONE PMX 2GM/50ML 50 ML IV SCH (15:17)
[2018-06-20 18:40] VITALS: BP 131/78
[2018-06-20] MEDS: OXYcodone IR 5MG TABLET PO PRN (20:56)
[2018-06-21 00:16] VITALS: BP 135/72
[2018-06-21 05:58] LABS: BASOPHILS # (AUTO) 0.02 x10^3/uL (0-0.1); BASOPHILS % (AUTO) 0 % (0-1); EOSINOPHILS # (AUTO) 0.13 x10^3/uL (0-0.4); EOSINOPHILS % (AUTO) 2 % (1-7); LYMPHOCYTES # (AUTO) 2.03 x10^3/uL (1-3.4); LYMPHOCYTES % (AUTO) 33 % (22-44); MD NO; MEAN CORPUSCULAR HEMOGLOBIN 33.8 pg (27.5-34.5); MEAN CORPUSCULAR HGB CONC 35.1 g/dL (33.2-36.2); MEAN CORPUSCULAR VOLUME 96.2 fL (81-97); MEAN PLATELET VOLUME 9.9 fL (7.4-10.4); MONOCYTES # (AUTO) 0.46 x10^3/uL (0.2-0.8); MONOCYTES % (AUTO) 8 % (2-9); NEUTROPHILS % (AUTO) 57 % (42-75); PLATELET COUNT 102 x10^3/uL (130-400); RED BLOOD COUNT 3.48 x10^6/uL (4.38-5.82); RED CELL DISTRIBUTION WIDTH 14.6 % (9.4-14.8)
[2018-06-21] MEDS ORDERED: LEVOTHYROXINE 125 MCG TABLET PO SCH ×2 (06:00)
[2018-06-21 06:07] LABS: ANION GAP 6 mmol/L (5-15); CALCIUM 7.7 mg/dL (8.5-10.1); CHLORIDE 112 mmol/L (98-107); CREATININE 1.44 mg/dL (0.7-1.3)
[2018-06-21] MEDS: SODIUM CHLORIDE 0.9% 1,000 ML IV SCH (07:10)
[2018-06-21 07:40] VITALS: BP 124/72
[2018-06-21] MEDS: DOXAZOSIN 2MG TABLET PO SCH (10:14)
[2018-06-21] MEDS: HEPARIN 5,000 UNITS/ML, 1ML SQ SCH (10:14)
[2018-06-21] MEDS: OXYcodone IR 5MG TABLET PO PRN (13:03)
[2018-06-21] MEDS ORDERED: CIPR500T87 PO (14:01)
[2018-06-21 14:10] VITALS: BP 115/71
[2018-06-21] MEDS: CEFTRIAXONE PMX 2GM/50ML 50 ML IV SCH (14:57)
== END 2018-06-21 15:59 | disposition home or self-care (01) | DRG 683 ==
LOC: ED 15:21 → EDIP 16:37 → 4EST 18:18
PROVIDERS: ADMIT Hospitalist; ATTEND Hospitalist
DX: N17.9 Acute kidney failure, unspecified (principal); R78.81 Bacteremia; E87.2 Acidosis; C7A.8 Other malignant neuroendocrine tumors; B96.89 Other specified bacterial agents as the cause of diseases classified elsewhere; B96.1 Klebsiella pneumoniae [K. pneumoniae] as the cause of diseases classified elsewhere; D69.6 Thrombocytopenia, unspecified; E03.9 Hypothyroidism, unspecified; G89.29 Other chronic pain; K52.9 Noninfective gastroenteritis and colitis, unspecified; N18.3 Chronic kidney disease, stage 3 (moderate); Z80.0 Family history of malignant neoplasm of digestive organs; Z80.1 Family history of malignant neoplasm of trachea, bronchus and lung; Z80.7 Family history of other malignant neoplasms of lymphoid, hematopoietic and related tissues; Z87.891 Personal history of nicotine dependence; Z85.028 Personal history of other malignant neoplasm of stomach; Z85.05 Personal history of malignant neoplasm of liver; Z90.49 Acquired absence of other specified parts of digestive tract; Z88.0 Allergy status to penicillin
CPT/HCPCS: 36415; 74176; 80048; 80053; 81001; 83605; 84145; 85025; 85651; 86140; 87040; 87086; 96365; 99285; G0378; J0696; J1644; J7030